=== PATIENT | male | born 1975 | race Caucasian/White ===

== ENCOUNTER 2020-04-29 08:26 | Outpatient (CLI) | payer BC, SELFPAY ==
[2020-04-29 09:11] LABS: Alanine Aminotransferase 38 U/L (16-63); Albumin Level 4.2 g/dL (3.4-5.0); Alkaline Phosphatase 61 U/L (46-116); Anion Gap 11 mmol/L (8-16); Aspartate Amino Transferase 15 U/L (15-37); Bilirubin,Total 0.3 mg/dL (0.00-1.00); Blood Urea Nitrogen 21 mg/dL (7-18); Calcium 9.3 mg/dL (8.5-10.1); Carbon Dioxide 26 mmol/L (21-32); Chloride 102 mmol/L (98-108); Estimated Glomerular Filt Rate > 60; Glucose 108 mg/dL (70-99); Lipase 443 U/L (73-393); Osmolality Calculated 292 mOsm/kg (285-295); Potassium 4.6 mmol/L (3.5-5.1); Sodium 139 mmol/L (136-145); Total Protein 7.8 g/dL (6.4-8.2)
[2020-05-01 19:46] LABS: H pylori, Urea Breath NOT DETECTED (NOT DETECTED)
== END 2020-04-29 08:27 | disposition home or self-care (01) ==
LOC: CHSLAB 08:28
PROVIDERS: PCP Family Medicine; Visit Provider Family Medicine
DX: K21.9 Gastro-esophageal reflux disease without esophagitis (principal)
CPT/HCPCS: 36415; 80053; 83013; 83690

== ENCOUNTER 2020-04-30 08:54 | Outpatient (CLI) | payer BC, SELFPAY ==
--- NOTE | ~2020-04-30 | US_ITS ---
US abdomen limited INDICATION: Acute pancreatitis PROCEDURE: Realtime right upper abdominal ultrasound. COMPARISON: CT dated 03/11/2018 FINDINGS: Pancreas is not well visualized due to overlying bowel gas. No gross abnormality of the marti creas identified. Liver echotexture is increased, consistent with fatty infiltration. There is norm al directional flow in the portal vein. The gallbladder is normal without stones, gallbladder wall thickening or pericholecystic fluid. Comm on bile duct measures 4 mm. No sonographic Valdez's sign. IMPRESSION: 1: Limited visualization of the pancreas. Consider correlation with CT. 2: Hepatic steatosis. Reviewed, dictated and finalized at location B. R TENDER
== END 2020-04-30 08:55 | disposition home or self-care (01) ==
LOC: CHSIMG 08:56
PROVIDERS: PCP Family Medicine; Visit Provider Family Medicine
DX: K85.90 Acute pancreatitis without necrosis or infection, unspecified (principal)
CPT/HCPCS: 76705

== ENCOUNTER 2020-08-20 13:30 | Outpatient (CLI) | payer BC, SELFPAY ==
[2020-08-20 13:41] LABS: Basophils Absolute Auto 0.05 K/mm3 (0.00-0.10); Basophils Percent Auto 0.3 % (0.0-1.0); Eosinophils Absolute Auto 0.06 K/mm3 (0.02-0.50); Eosinophils Percent Auto 0.3 % (1.0-6.0); Hematocrit 44.1 % (40.0-54.0); Hemoglobin 14.8 g/dL (14.0-18.0); Immature Granulocyte Absolute 0.11 K/mm3 (0.00-0.00); Immature Granulocyte Percent A 0.6 % (0.0-0.0); Lymphocytes Absolute Auto 1.04 K/mm3 (1.10-4.50); Lymphocytes Percent Auto 5.6 % (18.0-42.0); Mean Corpuscular HGB Conc 33.6 g/dL (32.0-36.0); Mean Corpuscular Hemoglobin 31.2 pg (27.0-31.0); Mean Corpuscular Volume 92.8 fL (78.0-102.0); Mean Platelet Volume 9.8 fl (8.7-11.0); Monocytes Absolute Auto 0.97 K/mm3 (0.10-0.90); Monocytes Percent Auto 5.2 % (2.0-11.0); Neutrophils Absolute Auto 16.4 K/mm3 (1.7-7.2); Platelet Count Result 259 K/mm3 (150-420); Red Blood Count 4.75 M/mm3 (4.70-6.10); Red Cell Distribution Width 13.5 % (11.6-14.4); White Blood Count 18.7 K/mm3 (4.8-10.8)
[2020-08-20] MEDS: SODIUM CHLORIDE 0.9% IV 1,000 ML 1000 ML IVPB (14:04)
[2020-08-20] MEDS: METOCLOPRAMIDE HCL INJ 10 MG/2 ML VIAL IV PUSH (14:04)
[2020-08-20 14:08] VITALS: BP 114/68; PULSE 78; RESP 18; TEMP 36.1; O2SAT 97
[2020-08-20 14:08] LABS: Alanine Aminotransferase 36 U/L (16-63); Albumin Level 4.1 g/dL (3.4-5.0); Alkaline Phosphatase 78 U/L (46-116); Amylase 46 U/L (25-115); Anion Gap 12 mmol/L (8-16); Aspartate Amino Transferase 17 U/L (15-37); Bilirubin,Total 0.5 mg/dL (0.00-1.00); Blood Urea Nitrogen 21 mg/dL (7-18); Calcium 9.4 mg/dL (8.5-10.1); Carbon Dioxide 26 mmol/L (21-32); Chloride 98 mmol/L (98-108); Estimated Glomerular Filt Rate 48; Glucose 114 mg/dL (70-99); Lipase 64 U/L (73-393); Osmolality Calculated 286 mOsm/kg (285-295); Potassium 4.5 mmol/L (3.5-5.1); Sodium 136 mmol/L (136-145)
--- NOTE | 2020-08-20 15:12 | PC.NURSE ---
Patient sent over from [facility] for 1 L NS and IV Reglan. Patient reports woke up yesterday with n/v and diarrhea. Labs drawn in lab. NS IV 1 L and IV Reglan administered -see MAY. Tolerated well. Reports feels better. Safe exit of hospital.
== END 2020-08-20 13:31 | disposition home or self-care (01) ==
PROVIDERS: PCP Family Medicine; Visit Provider Nurse Practitioner Family
DX: E86.0 Dehydration (principal); R11.2 Nausea with vomiting, unspecified
CPT/HCPCS: 36415; 80053; 82150; 83690; 85025; 96360; 96361; 96374; J2765; J7030

== ENCOUNTER 2020-08-21 12:55 | Outpatient (CLI) | payer BC, SELFPAY ==
--- NOTE | ~2020-08-21 | CT_ITS ---
EXAMINATION: CT abdomen pelvis w con DATE: 08/21/2020 13:31 INDICATION: Abdominal pain and vomiting TECHNIQUE: Computed tomography (CT) of the abdomen and pelvis was performed with 100 mL Omnipaque-350 intravenous contrast. Automated exposure control and iterative reconstruction technique were employe d. The dose-length product was 1252.23 mGy-cm. COMPARISON: 03/11/2018 FINDINGS: Lung bases are clear. Heart size is normal. No pericardial or pleural effusion. Diffuse hepatic steat osis with focal sparing along the gallbladder fossa. Gallbladder, spleen, pancreas, bilateral adrenal glands and kidneys are normal. There is diffuse wall thickening of the colon with proximal colonic p redominance where there is also mild pericolonic inflammatory stranding consistent with colitis. No p neumatosis. Small bowel and appendix are normal. Decompressed bladder is unremarkable. No free intrap eritoneal gas or fluid. No pathologically enlarged abdominal or pelvic lymphadenopathy. Minimal scatt ered degenerative skeletal changes. IMPRESSION: 1. Proximal colitis which could be infectious, inflammatory or less likely ischemic in etiology. 2. Diffuse hepatic steatosis. Reviewed, dictated and finalized at location A. IMPRESSION: 1. Proximal colitis which could be infectious, inflammatory or less likely isch emic in etiology. 2. Diffuse hepatic steatosis.
== END 2020-08-21 12:56 | disposition home or self-care (01) ==
LOC: CHSIMG 12:58
PROVIDERS: PCP Family Medicine; Visit Provider Nurse Practitioner Family
DX: R10.9 Unspecified abdominal pain (principal); K52.9 Noninfective gastroenteritis and colitis, unspecified
CPT/HCPCS: 74177; Q9967

== ENCOUNTER 2020-08-22 12:49 | Outpatient (CLI) | payer BC, SELFPAY ==
[2020-08-22] MEDS: SODIUM CHLORIDE 0.9% IV 1,000 ML 999 ML IVPB (13:32)
[2020-08-22 13:45] VITALS: BP 124/76; PULSE 80; RESP 16; O2SAT 97
--- NOTE | 2020-08-22 15:56 | PC.NURSE ---
Patient here for 1 L NS IV over 1 hour. Patient was here on Wednesday for same thing. No concerns voiced. Reports has colitis and is now on Flagyl po. 1 L NS administered. Tolerated well. Going to lab for bloodwork as ordered. Safe exit.
[2020-08-22 16:19] LABS: Alanine Aminotransferase 49 U/L (16-63); Albumin Level 3.3 g/dL (3.4-5.0); Alkaline Phosphatase 67 U/L (46-116); Anion Gap 12 mmol/L (8-16); Aspartate Amino Transferase 30 U/L (15-37); Bilirubin,Total 0.3 mg/dL (0.00-1.00); Blood Urea Nitrogen 19 mg/dL (7-18); Carbon Dioxide 24 mmol/L (21-32); Chloride 104 mmol/L (98-108); Estimated Glomerular Filt Rate > 60; Glucose 89 mg/dL (70-99); Osmolality Calculated 291 mOsm/kg (285-295); Potassium 4.6 mmol/L (3.5-5.1); Sodium 140 mmol/L (136-145); Total Protein 6.6 g/dL (6.4-8.2)
== END 2020-08-22 12:50 | disposition home or self-care (01) ==
PROVIDERS: PCP Family Medicine; Visit Provider Nurse Practitioner Family
DX: E86.0 Dehydration (principal); N28.9 Disorder of kidney and ureter, unspecified
CPT/HCPCS: 36415; 80053; 96360; J7030

== ENCOUNTER 2021-03-04 07:39 | Outpatient (RCR) | payer BC, SELFPAY ==
--- NOTE | 2021-03-04 08:22 | PTOPEVAL ---
Thank you for referring Dharmesh Davison to [facility].? The patient is scheduled to be seen for therapy? ____x/week for ___ weeks. Please review, sign, date and return this plan of care FERCHO. I agree with and certify that the following plan of care is medically necessary. Referring Physician Date Admitting Provider: Attending Provider: Vinay Han DPM Referring Provider: CHATO Outpatient Evaluation Start: 03/04/21 07:05 Freq: Status: Active Protocol: Document 03/04/21 07:05 [facility] (Rec: 03/04/21 08:18 [facility] [id number]) Therapy Assessment Status Assessment Status Assessment Status Evaluation Evaluation Information Problem Diagnosis R plantar fascial fibromatosis Onset 02/24/21 Additional Evaluation Detail LEFS = Subjective Information patient reports he has been Query Text:As Reported By Patient/ having pain in the R foot for Family about 2-3 years. he reports having pain more in the inside and bottom of the R heel. he reports he does have swelling from time to time. he reports he has had the problem several times on both feet. he reports he has had injections in the past on his bilateral feet. he reports he works at [employer]. he reports he is on his feet in work boots for long hours. he reports the pain is worst after he rests and tries to get up and walk again. Prior Level of Function Comments Additional Prior Level of Function patient reports he has been Comments having pain from more than 2-3 years. he reports he has been getting worse for the whole 2 -3 years. he reports he has had several failed injections in the R foot. Pain Assessment Timing of Pain Assessment Timing of Pain Assessment Assessment Pain Scale Pain Scale Used Numeric (1 - 10) Self Report Pain Assessment Right Foot/Feet Reported Pain Level 6 Greatest Pain Intensity 9 Pain Score Pain Score 6: Self Report Interventions Used Interventions Used By Clinicians Exercise,Ice,Medication,Rest Lower Extremity Range of Motion Ankle/Foot Range of Motion Right Ankle Dorsiflexion With Knee Extension 0 Range of Motion - Active Ankle Dorsiflexion With Knee Flexed
--- NOTE | 2021-04-03 17:15 | PTOPEVAL ---
Thank you for referring Dharmesh Davison to [facility].? The patient is scheduled to be seen for therapy? ____x/week for ___ weeks. Please review, sign, date and return this plan of care FERCHO. I agree with and certify that the following plan of care is medically necessary. Referring Physician Date Admitting Provider: Attending Provider: Vinay Han DPM Referring Provider: *PT Outpatient Evaluation Start: 03/04/21 07:05 Freq: Status: Active Protocol: Document 04/03/21 15:29 [facility] (Rec: 04/03/21 17:15 [facility] [id number]) Therapy Assessment Status Assessment Status Assessment Status Discharge Evaluation Information Problem Diagnosis R plantar fascial fibromatosis Onset 02/24/21 Additional Evaluation Detail LEFS= 62% functionally declined Subjective Information patient reports initially he Query Text:As Reported By Patient/ was doing well with therapy, Family but reports this was during a 2 week off period at work. 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 he reports his ROM is better, but the pain is what is constant again and causing him to limp. Pain Assessment Timing of Pain Assessment Timing of Pain Assessment Assessment Pain Scale Pain Scale Used Numeric (1 - 10) Self Report Pain Assessment Right Foot/Feet Reported Pain Level 8 Pain Score Pain Score 8: Self Report Interventions Used Interventions Used By Clinicians Activity or ADL's,Dry Needling ,Education,Exercise,Manual Therapy Techniques Lower Extremity Range of Motion Ankle/Foot Range of Motion Right Ankle Dorsiflexion With Knee Extension 10 Range of Motion - Active Ankle Plantarflexion Range of Motion - 40 Active Query Text: Lower Extremity Muscle Strength Testing Ankle Strength Right Ankle Dorsiflexion Strength 5 Normal Ankle Plantarflexion Strength 4+ Good + Muscle Length Testing Muscle Length Testing Gastrocnemius Length (L) WFL,(R) Mild Tightness Palpation Assessment Palpation Palpation tenderness to palpation of the medial calcaneal tubercle and the medial foot just superior to the medial calaneal tubercle.
== END 2021-04-03 08:32 | disposition home or self-care (01) ==
LOC: CHSPT 07:39
PROVIDERS: Visit Provider Podiatrist
DX: M72.2 Plantar fascial fibromatosis (principal)
CPT/HCPCS: 97110; 97140; 97161

== ENCOUNTER 2021-04-07 08:18 | Outpatient (CLI) | payer BC, SELFPAY ==
--- NOTE | ~2021-04-07 | XR_ITS ---
XR foot RT min 3V DATE: 04/07/2021 08:54 INDICATION: Plantar fasciitis TECHNIQUE: 3 weightbearing views of right foot COMPARISON: None FINDINGS: Distal Achilles tendon calcification is noted. There is mild plantar calcaneal enthesopathy . No fracture, dislocation, periosteal reaction or bone destruction is detected. IMPRESSION: Distal Achilles tendon calcification and mild plantar calcaneal enthesopathy Reviewed, dictated and finalized at location A. ECTIONAL OFFICER IMPRESSION: Distal Achilles tendon calcification and mild plantar calcaneal ent hesopathy
[2021-04-07 08:37] LABS: Basophils Absolute Auto 0.06 K/mm3 (0.00-0.10); Basophils Percent Auto 0.8 % (0.0-1.0); Eosinophils Absolute Auto 0.26 K/mm3 (0.02-0.50); Eosinophils Percent Auto 3.5 % (1.0-6.0); Hematocrit 42.7 % (40.0-54.0); Hemoglobin 14.8 g/dL (14.0-18.0); Immature Granulocyte Absolute 0.04 K/mm3 (0.00-0.00); Immature Granulocyte Percent A 0.5 % (0.0-0.0); Lymphocytes Absolute Auto 2.46 K/mm3 (1.10-4.50); Lymphocytes Percent Auto 33.5 % (18.0-42.0); Mean Corpuscular HGB Conc 34.7 g/dL (32.0-36.0); Mean Corpuscular Hemoglobin 32.3 pg (27.0-31.0); Mean Corpuscular Volume 93.2 fL (78.0-102.0); Mean Platelet Volume 9.9 fl (8.7-11.0); Monocytes Absolute Auto 0.51 K/mm3 (0.10-0.90); Monocytes Percent Auto 6.9 % (2.0-11.0); Neutrophils Percent Auto 54.8 % (50.0-70.0); Platelet Count Result 281 K/mm3 (150-420); Red Blood Count 4.58 M/mm3 (4.70-6.10); Red Cell Distribution Width 13.1 % (11.6-14.4); White Blood Count 7.4 K/mm3 (4.8-10.8)
[2021-04-07 09:21] LABS: Alanine Aminotransferase 49 U/L (16-63); Albumin Level 3.9 g/dL (3.4-5.0); Alkaline Phosphatase 58 U/L (46-116); Anion Gap 14 mmol/L (8-16); Aspartate Amino Transferase 17 U/L (15-37); Bilirubin,Total 0.4 mg/dL (0.00-1.00); Blood Urea Nitrogen 19 mg/dL (7-18); Calcium 9.1 mg/dL (8.5-10.1); Carbon Dioxide 23 mmol/L (21-32); Chloride 100 mmol/L (98-108); Cholesterol 217 mg/dL (0-200); Estimated Glomerular Filt Rate > 60; Glucose 154 mg/dL (70-99); HDL Direct 38 mg/dL (40-60); LDL Cholesterol Calculated 126 mg/dL (<130); Osmolality Calculated 289 mOsm/kg (285-295); Potassium 4.1 mmol/L (3.5-5.1); Prostate Specific Antigen 0.8 ng/mL (< OR = 4.0); Sodium 137 mmol/L (136-145); Total Protein 7.5 g/dL (6.4-8.2); Triglycerides 266 mg/dL (0-150)
[2021-04-07 13:35] LABS: Hemoglobin A1C 6.1 % (<5.7)
== END 2021-04-07 08:19 | disposition home or self-care (01) ==
LOC: CHSLAB 08:22
PROVIDERS: PCP Family Medicine; Visit Provider Nurse Practitioner Family
DX: E78.5 Hyperlipidemia, unspecified (principal); M72.2 Plantar fascial fibromatosis; I10 Essential (primary) hypertension; N28.9 Disorder of kidney and ureter, unspecified; R73.09 Other abnormal glucose; R35.1 Nocturia
CPT/HCPCS: 36415; 73630; 80053; 80061; 83036; 84153; 85025

== ENCOUNTER → 2021-04-08 09:13 | Outpatient (CLI) | payer BC, SELFPAY ==
--- NOTE | ~2021-04-08 | MR_ITS ---
EXAMINATION: MR foot RT wo con DATE: 04/08/2021 10:24 INDICATION: Right foot pain. Neoplasm of unspecified behavior of bone or soft tissue. TECHNIQUE: Magnetic resonance imaging (MRI) of the right mid and hindfoot including the ankle was per formed without intravenous contrast. Sequences included sagittal, coronal, and axial proton-density w eighted fast spin echo without and with fat saturation. COMPARISON: Radiographs dated 04/07/2021 FINDINGS: Medial ankle ligaments: Deep and superficial deltoid ligaments as well as the spring ligament are normal. Lateral ankle ligaments: The anterior and posterior inferior tibiofibular ligaments are normal. The anterior talofibular, calc aneofibular and posterior talofibular ligaments are normal. Tendons: Achilles tendon is normal. The peroneus longus and brevis tendons are normal. The tibialis anterior a nd extensor hallucis longus and extensor digitorum longus tendons are normal. The tibialis posterior, flexor digitorum longus and flexor hallucis longus tendons are normal. Plantar fascia: Mild fusiform thickening of the central component of the proximal plantar aponeurosis with mild incre ased fluid signal in the immediately surrounding soft tissues consistent with mild plantar fasciitis. Partial thickness tear involving approximately two thirds of the cross-sectional area of the central component of the proximal plantar aponeurosis located approximately 1.5 cm from the calcaneal insert ion. Bones/other: Bone alignment is normal. No fracture. Mild osteoarthritis at the right ankle joint with small amount of subarticular increased marrow signal along the medial side of the talar dome suggesting overlying high-grade chondromalacia. Remaining joint spaces are normal. Otherwise normal marrow signal. Fluid: Physiologic amount of fluid in the joint space. No bursitis, tenosynovitis or other abnormal fluid co llections. IMPRESSION: 1. Mild plantar fasciitis with partial-thickness tear of the central component of the plantar aponeur osis. 2. Mild right ankle osteoarthritis with small region of high-grade chondral malacia along the medial side of the talar dome. Reviewed, dictated and finalized at location A. TYING MACHINE KNOTTER IMPRESSION: 1. Mild plantar fasciitis with partial-thickness tear of the central component of the plantar aponeurosis. 2. Mild right ankle osteoarthritis with small region of high-grade chondral mal acia along the medial side of the talar dome.
== END ==
PROVIDERS: Visit Provider Podiatrist
DX: M19.071 Primary osteoarthritis, right ankle and foot (principal); M72.2 Plantar fascial fibromatosis
CPT/HCPCS: 73718

== ENCOUNTER → 2021-09-08 08:28 | Outpatient (CLI) | payer BC, SELFPAY ==
--- NOTE | ~2021-09-08 | MR_ITS ---
EXAMINATION: MR ankle RT wo con DATE: 09/08/2021 09:04 INDICATION: Right ankle pain TECHNIQUE: Magnetic resonance imaging (MRI) of the right ankle was performed without intravenous cont rast. Sequences included sagittal, coronal, and axial proton-density weighted fast spin echo without and with fat saturation. COMPARISON: None. FINDINGS: Medial ankle ligaments: Deep and superficial deltoid ligaments as well as the spring ligament are normal. Lateral ankle ligaments: The anterior and posterior inferior tibiofibular ligaments are normal. The anterior talofibular, calc aneofibular and posterior talofibular ligaments are normal. Tendons: Achilles tendon is normal. The peroneus longus and brevis tendons are normal. The tibialis anterior a nd extensor hallucis longus and extensor digitorum longus tendons are normal. The tibialis posterior, flexor digitorum longus and flexor hallucis longus tendons are normal. Plantar fascia: Mild thickening and mild increased signal at the central component of the plantar aponeurosis located approximately 1.5 cm from the calcaneal origin consistent with mild scarring at the site of a previo usly noted partial tear. Bones/other: Bone alignment is normal. No fracture or pathologic marrow replacing process. Again seen is a region of high-grade chondromalacia with mild subarticular edema along the posterior medial aspect of the me dial talar dome. There is a more clearly defined deep chondral fissure extending obliquely across the overlying cartilage of the talar dome which is likely present on the prior study but more conspicuou s in the current study. Marrow signal is otherwise normal. Remaining joint spaces are normal. Fluid: Physiologic amount fluid in the joint space. No bursitis, tenosynovitis or other abnormal fluid colle ctions. IMPRESSION: 1. Residual scarring at the site of a prior partial tear at the proximal aspect of the central compon ent of the plantar aponeurosis. 2. Mild ankle osteoarthritis with no significant change in a deep chondral fissure with underlying mi ld subarticular edema at the posterior medial aspect of the talar dome. Reviewed, dictated and finalized at location B. IMPRESSION: 1. Residual scarring at the site of a prior partial tear at the proximal aspect of the central component of the plantar aponeurosis. 2. Mild ankle osteoarthritis with no significant change in a deep chondral fiss ure with underlying mild subarticular edema at the posterior medial aspect of t he talar dome.
== END ==
PROVIDERS: PCP Family Medicine; Visit Provider Student in an Organized Health Care Education/Training Program
DX: M25.571 Pain in right ankle and joints of right foot (principal); M19.071 Primary osteoarthritis, right ankle and foot; R60.9 Edema, unspecified
CPT/HCPCS: 73721

== ENCOUNTER 2021-10-08 01:34 | Day surgery (SDC) | payer BC, SELFPAY ==
[2021-10-03 13:59] VITALS: BMI 39.9
--- NOTE | 2021-10-03 14:07 | SUR.PREOP ---
Report to the Outpatient Waiting Room, entrance under the green pavilion located off [facility], at time _0600_ on date 10/08/21. OR Time: 0730. - You and your visitor will be asked a series of questions to screen for COVID 19 for your protection. - Only one visitor is allowed at this time. - The patient visitor is requested to leave or wait in car when not with patient. - A mask is required within the hospital. Patients may have clear liquids (water, carbonated beverages, clear teas, apple juice) until 3 hours prior to surgery with a maximum of 20 ounces. - No food from midnight until time of surgery 0430 AM - Infants may have breast milk until 4 hours before surgery, formula 6 hours prior to surgery. - Children will be allowed to drink immediately following surgery. If applicable, please bring a bottle or sippy cup to assist with drinking. Juice, water, soda, and popsicles are readily available. For infants on formula, please bring formula the day of surgery. Pacifiers are allowed. Take the following medications with a SIP of water the morning of surgery: ___HOLD ALL MORNING MEDICATIONS Medications to discontinue per physician Date to take last dose Please no make-up, nail irish, hairspray, perfume, deodorant, or body powder the day of surgery. No jewelry (including any body piercings) or valuables the day of surgery, leave them at home. Please take a shower or bath the night before, or the morning of, surgery with an antibacterial soap. Wear comfortable, loose fitting clothing. Children are encouraged to wear pajamas. - Jewelry must be removed prior to entering the operating room. Rings and piercings that are not removed may be cut off. - The hospital will not accept responsibility for valuables. - Please leave all valuables, including medications, at home the day of surgery. If you are going home after surgery, a licensed oil transport driver must drive you home. - NO public transportation without another adult. - We recommend that an adult stay with you for 24 hours following discharge. - We also recommend that you do not drive, make important decision, drink alcoholic beverages, or take any drugs that were not prescribed by your health care provider for at least 24 hours after your discharge time. For Pediatric surgeries, we recommend two adults accompany the child home (only one inside the building at this time). Follow any additional instructions given to you from your surgeon. If you or anyone in your household have experienced Covid symptoms in the past week, please notify your surgeon or the nurse liaison at the phone number below for possible testing. Telephone instructions given to _PATIENT and asked if any additional questions and then verbalized understanding. Patient advised to call surgeon office or pre surgery nurse liaison [phone] if any additional questions.
--- NOTE | 2021-10-07 13:39 | WPDANESEPPF ---
Anes - Initial Pre Proc Eval Procedure: Operation Date: 10/08/21 07:30 Proposed Procedures p Open Plantar Fasciotomy Right Foot, - Ana Laura Han DPM s Platelet Rich Plasma Injection Right Heel - Ana Laura Han DPM Date/Time: 10/07/21 13:39 Surgeon: Ana Laura Han DPM Pre Op Diagnosis: plantar fascitis right foot Patient Data Age: 46 Gender: M Height: 1.65 m Weight: 108.88 kg Allergies Allergy/AdvReac Type Severity Reaction Status Date / Time No Known Allergies Allergy Verified 06/23/21 07:52 Home Medications Medication Instructions Recorded Confirmed Type lisinopril 40 mg tablet 40 mg PO DAILY 10/03/21 10/03/21 History pantoprazole 40 mg tablet,delayed 40 mg PO DAILY 10/03/21 10/03/21 History release pravastatin 80 mg tablet 80 mg PO DAILY 10/03/21 10/03/21 History Patient hx anesthesia problems: none Family hx anesthesia problems: none Results Review: All pre-operative results and documents have been reviewed as part of the pre-operative evaluation. [facility] Past Medical History Medical History Abdominal pain Acute pancreatitis Bronchitis GERD (gastroesophageal reflux disease) Hyperlipidemia Hypertension Idiopathic urticaria Kidney function abnormal Nausea and vomiting Nocturia Obesity, Class II, BMI 35-39.9 Rectal bleeding Surgical History Surgical History No history of previous surgery Family History Family History Father Elevated PSA Mother , Age 54 Lung cancer Liver cancer Other Family history of coronary artery disease Social History Social History Smoking status: Never smoker Living arrangements: with family Additional living arrangements comments: . 1 child. Additional occupation/education comments: [employer] Spiritual care concerns: No Anes - Eval Final PreProcedure Day of Procedure 10/07/21 13:39 Patient weight: obese Heart: regular rate and rhythm Lungs: clear to auscultation and normal air movement Airway: Mallampati scale class II Neurological: alert and oriented Last oral intake: >/= 8 hours ASA classification: III Emergent: no Anesthetic plan: proceed Anesthesia type and monitoring: general GIVS and LMA Results Review: All pre-operative results and documents have been reviewed as part of the pre-operative evaluation. Informed Consent: The patient's anesthetic plan and its attendant risks and benefits were discussed with the patient/family/POA. Questions were solicited and answers provided to the satisfaction of the patient/family/POA.
[2021-10-08] MEDS: LACTATED RINGERS 1,000 ML 30 ML IV CONT ×2 (06:30→08:29)
--- NOTE | 2021-10-08 06:47 | WPDHPUPDATE1 ---
History and Physical Update Update Date/Time: 10/08/21 06:47 History and Physical has been reviewed, including an updated exam of the patient. There are NO changes in the patient's condition. Risks, benefits, and alternatives have been discussed and questions answered. Patient agrees to proceed with procedure.
[2021-10-08 07:00] VITALS: BP 144/91; PULSE 86; RESP 18; TEMP 37.3; O2SAT 100
[2021-10-08] MEDS: ceFAZolin 2 GM/D5W 50 ML 2 GM/50 ML BAG IVPB (07:29)
[2021-10-08] MEDS: KETOROLAC 30 MG/ML VIAL (*BKC) IV PUSH (07:43)
[2021-10-08] MEDS: BUPIVACAINE HCL 0.5% PF 30 ML VIAL 10 ML INFILTRATE (08:00)
[2021-10-08 08:29] VITALS: BP 115/65; PULSE 76; RESP 16; O2SAT 97
--- NOTE | 2021-10-08 08:44 | P.OP_ITS ---
Procedure Note - Detailed Date of Procedure 10/08/21 Pre-op Diagnosis 1) Plantar fascia tear right foot with residual scar tissue. 2) Pain in right foot. Post-op Diagnosis Same Procedure Performed 1) Open plantar fasciotomy right foot. 2) Platelet rich plasma injection right foot. Surgeon Ana Laura Han DPM Anesthesia MAC and Local (Preop 10 cc of 1:1 mix of 1% lidocaine plain and 0.5% bupivacaine plain. Postop 4 cc of 0.5% bupivacaine plain. ) Indications Patient has been treated for plantar fascia tear right foot since March 2021 with immobilization, steroid injection, otc orthotics, nsaids, stretching and physical therapy. Patient has failed conservative treatment. Description of Procedure Patient was brought into the operating room and placed on the table in the supine position. The patient was secured to the table with a safety belt. A well padded pneumatic ankle tourniquet was placed on the right ankle. MAC anesthesia was achieved. The SANITATION TRUCK CLEANER adelso 40 cc of whole blood from the patients left arm which was then given to the [employer] rep who used the centrifuge to spin it down for a total of 2 cc of platelet rich plasma. A time out was performed. A local injection was performed using 10 cc of 1:1 mix of 1% lidocaine plain and 0.5% bu pivacaine plain. The right foot was exsanguinated of blood using a esmarch bandage. A linear incision was made over the medial aspect of the right heel using a #15 blade. The incision was deepened using blunt disection through the subcutaneous tissue making sure to avoid all neurovascular structures. The plantar fascia was identified and noted to be thickened. The plantar fascia was released using a combination of scissors and scalpel. The area was flushed with copious amounts of normal saline. The PRP was injected into the surgical site. The incision was closed subcutaneously using 4-0 monocryl. The skin was closed using 3-0 prolene. The tourniquet was deflated. The foot was dressed with adaptic, 4x4 gauze, 4 kerlix. A well padded posterior splint was applied using a combination of stockinette, webril, fiberglass and 6 rebecca wrap. The patient was transfered to pacu with intact perfusion of the digits. Patient tolerated procedure and anesthesia well. Patient to be discharged home with prescription for keflex and percocet. Patient to be NWB with use of crutches. Estimated Blood Loss -5.0 Tourniquet Time 23
[2021-10-08] MEDS: oxyCODONE HCL (*CRX) 5 MG TAB IR PO (08:51)
[2021-10-08 09:00] VITALS: BP 98/66; PULSE 71
[2021-10-08 09:30] VITALS: BP 116/60; PULSE 70
== END 2021-10-08 09:43 | disposition home or self-care (01) ==
PROVIDERS: PCP Family Medicine; Visit Provider Student in an Organized Health Care Education/Training Program
PROC: (CPT 28119; principal; 2021-10-08 07:30)
PROC: (CPT 28008; 2021-10-08 07:30)
DX: M72.2 Plantar fascial fibromatosis (principal); I10 Essential (primary) hypertension; E78.5 Hyperlipidemia, unspecified; K21.9 Gastro-esophageal reflux disease without esophagitis; E66.9 Obesity, unspecified; Z68.41 Body mass index [BMI] 40.0-44.9, adult
CPT/HCPCS: 28008; 0232T; A9270; J0131; J0690; J1100; J1885; J2250; J2405; J2704; J3010; J7120

== ENCOUNTER 2021-11-03 08:51 | Outpatient (RCR) | payer BC, SELFPAY ==
--- NOTE | 2021-11-03 10:08 | PTOPEVAL ---
Thank you for referring Dharmesh Davison to [facility].? The patient is scheduled to be seen for therapy? __2__x/week for 8 visits. Please review, sign, date and return this plan of care FERCHO. I agree with and certify that the following plan of care is medically necessary. Referring Physician Date Admitting Provider: Attending Provider: Ana Laura Han DPM Referring Provider: *PT Outpatient Evaluation Start: 11/03/21 08:59 Freq: Status: Active Protocol: Document 11/03/21 09:05 [facility] (Rec: 11/03/21 10:08 [facility] [id number]) Therapy Assessment Status Assessment Status Assessment Status Evaluation Outpatient Past Medical History Neurological History Hx Neurological Disorders No Significant History Cardiovascular History Hx Hypercholesterolemia Yes Hx Hypertension Yes Respiratory History Hx Respiratory Disorders No Significant History Gastrointestinal History Hx Gastrointestinal Disorders No Significant History Genitourinary History Hx Genitourinary Disorders No Significant History Musculoskeletal History Hx Musculoskeletal Disorders No Significant History Hematological History Hx Hematological Disorders No Significant History Endocrine History Hx Endocrine Disorders No Significant History HEENT History Hx HEENT Disorders No Significant History Integumentary History Hx Skin Disorders No Significant History Reproductive History Hx Reproductive Disorders No Significant History Psychosocial History Hx Psychiatric Disorders No Significant History Pain History History of Any Previous or Ongoing No Significant History Instance of Pain Anesthesia History Hx Anesthesia Reactions No Significant History Evaluation Information Problem Diagnosis open plantar fascia release Onset 10/08/21 Subjective Information Pt. reports that he underwent Query Text:As Reported By Patient/ plantar fascia surgery on 10/08 Family*. He reports that he is currently wearing a boot. He has not done full WB over the right foot yet. He reports that he is working at [employer] , but has been off work. He reports that he is on his feet all day with work. He reports that he is currently using crutches and has not returned to driving. He states that he was very activie before his injury and his goal is to return to no
--- NOTE | 2021-11-27 10:31 | PTOPEVAL1 ---
Evaluation Information Assessment Status Re-evaluation Subjective Information Dharmesh reports his right foot is improving overall with less pain, increased mobility, and progressing tolerance to weight bearing noted. He has been walking a little inside his home without his boot over the last couple days. He does continue to have mild to moderate pain. He also reports apprehension putting all his weight on his right heel. He does not feel he is quite ready to return to full duty work at the [employer] as he will have to wear steel toe boots and work 16 hour shifts on his feet. Reported Pain Level Pain Score 2: Self Report Assessment PT Clinical Summary Dharmesh is reporting improved pain and improved tolerance to weight bearing in the right foot and ankle. He objectively demonstrates improved right foot and ankle AROM, improved right foot and ankle strength, improved gait, and improved balance. Despite these improvements, he continues to have impaired gait, impaired balance, decreased strength, and decreased functional abilities. He will continue to benefit from skilled PT to further address ongoing deficits and return him to his prior level of function. Plan of Care Interventions Electrical Stimulation,Gait Training,Hot Pack/Cold Pack,Manual Therapy,Therapeutic Exercise PT Services Indicated Yes Treatment Frequency and Recommend continuation of skilled PT 2 times a Duration week for 8 more visits. These treatments will address the objective and functional deficits as defined above. The patient will be advanced safely and appropriately in order for the patient to progress towards his/her prior level of function. Additional exercises will be introduced and as well as a comprehensive home exercise program upon discharge, if needed, ?to ensure carryover of functional gains achieved in the clinic. This treatment plan has been reviewed and agreement upon by the patient.
--- NOTE | 2022-02-22 12:34 | PCPTNOTE ---
patient has not been to therapy in over 2 months. he is now DC'd from skilled PT services, and all progress towards goals will be taken from his mos recent evaluation/note. MELVA
== END 2021-12-19 18:00 | disposition home or self-care (01) ==
LOC: CHSPT 08:51
PROVIDERS: Visit Provider Student in an Organized Health Care Education/Training Program
DX: M72.2 Plantar fascial fibromatosis (principal)
CPT/HCPCS: 97014; 97110; 97140; 97161; G0283

== ENCOUNTER 2021-12-05 10:58 | Outpatient (CLI) | payer BC, SELFPAY ==
[2021-12-05 11:22] LABS: Hemoglobin A1C 6.1 % (<5.7)
[2021-12-05 11:44] LABS: Alanine Aminotransferase 63 U/L (16-63); Albumin Level 4.1 g/dL (3.4-5.0); Alkaline Phosphatase 69 U/L (46-116); Anion Gap 13 mmol/L (8-16); Aspartate Amino Transferase 28 U/L (15-37); Bilirubin,Total 0.3 mg/dL (0.00-1.00); Blood Urea Nitrogen 16 mg/dL (7-18); Calcium 9.1 mg/dL (8.5-10.1); Carbon Dioxide 21 mmol/L (21-32); Chloride 103 mmol/L (98-108); Estimated Glomerular Filt Rate 60; Glucose 153 mg/dL (70-99); Osmolality Calculated 288 mOsm/kg (285-295); Potassium 4.3 mmol/L (3.5-5.1); Sodium 137 mmol/L (136-145); Total Protein 7.5 g/dL (6.4-8.2)
== END 2021-12-05 10:59 | disposition home or self-care (01) ==
LOC: CHSLAB 11:00
PROVIDERS: PCP Family Medicine; Visit Provider Family Medicine
DX: E11.9 Type 2 diabetes mellitus without complications (principal)
CPT/HCPCS: 36415; 80053; 83036

== ENCOUNTER 2022-02-09 08:28 | Outpatient (CLI) | payer BC, SELFPAY ==
--- NOTE | ~2022-02-09 | XR_ITS ---
EXAMINATION: XR ankle RT min 3V, XR foot RT min 3V DATE: 02/09/2022 08:56 INDICATION: Right foot and ankle pain. Plantar fasciitis. TECHNIQUE: 1. Anteroposterior, mortise, additional oblique and lateral view of the right ankle were obtained. 2. Dorsoplantar, two oblique and lateral views of the right foot were obtained. COMPARISON: None. FINDINGS: Alignment of the foot and ankle is normal. No fracture or osteochondral lesion. Minimal to mild polya rticular osteoarthritis at the first metatarsophalangeal and a few tarsometatarsal and interphalangea l joints. Small plantar calcaneal spur. Small amount of enthesopathic ossification at the distal Achi lles tendon. No erosions. No ankle joint effusion. The soft tissues are unremarkable. IMPRESSION: 1. Small plantar calcaneal spur and small enthesopathic ossicles at the distal Achilles tendon. 2. Typical pattern of minimal to mild polyarticular osteoarthritis in the mid and forefoot. Reviewed, dictated and finalized at location A. [employer] IMPRESSION: 1. Small plantar calcaneal spur and small enthesopathic ossicles at the distal Achilles tendon. 2. Typical pattern of minimal to mild polyarticular osteoarthritis in the mid a nd forefoot.
== END 2022-02-09 08:29 | disposition home or self-care (01) ==
LOC: CHSIMG 08:30
PROVIDERS: PCP Family Medicine; Visit Provider Orthopaedic Surgery
DX: M25.571 Pain in right ankle and joints of right foot (principal); M79.671 Pain in right foot
CPT/HCPCS: 73610; 73630

== ENCOUNTER 2022-06-30 13:33 | Outpatient (CLI) | payer BC, SELFPAY ==
[2022-06-30 13:45] LABS: Hematocrit 44.2 % (40.0-54.0); Hemoglobin 14.9 g/dL (14.0-18.0); Mean Corpuscular HGB Conc 33.7 g/dL (32.0-36.0); Mean Corpuscular Hemoglobin 31.2 pg (27.0-31.0); Mean Corpuscular Volume 92.7 fL (78.0-102.0); Mean Platelet Volume 9.7 fl (8.7-11.0); Platelet Count Result 293 K/mm3 (150-420); Red Blood Count 4.77 M/mm3 (4.70-6.10); Red Cell Distribution Width 12.7 % (11.6-14.4); White Blood Count 8.8 K/mm3 (4.8-10.8)
[2022-06-30 14:20] LABS: Alanine Aminotransferase 35 U/L (16-63); Alkaline Phosphatase 65 U/L (46-116); Anion Gap 12 mmol/L (8-16); Aspartate Amino Transferase 17 U/L (15-37); Bilirubin,Total 0.4 mg/dL (0.00-1.00); Blood Urea Nitrogen 13 mg/dL (7-18); Calcium 9.6 mg/dL (8.5-10.1); Carbon Dioxide 25 mmol/L (21-32); Chloride 104 mmol/L (98-108); Estimated Glomerular Filt Rate > 60; Glucose 94 mg/dL (70-99); Osmolality Calculated 292 mOsm/kg (285-295); Potassium 4.4 mmol/L (3.5-5.1); Sodium 141 mmol/L (136-145); Total Protein 7.8 g/dL (6.4-8.2)
[2022-06-30 14:37] LABS: CRP < 0.5 mg/dL (0.0-0.9); Lipase 331 U/L (16-77)
== END 2022-06-30 13:34 | disposition home or self-care (01) ==
LOC: CHSLAB 13:35
PROVIDERS: PCP Family Medicine; Visit Provider Family Medicine
DX: R10.9 Unspecified abdominal pain (principal)
CPT/HCPCS: 36415; 80053; 83690; 85027; 86140

== ENCOUNTER 2022-07-03 08:14 | Outpatient (CLI) | payer BC, SELFPAY ==
--- NOTE | ~2022-07-03 | CT_ITS ---
CT of the Abdomen and Pelvis: Indication: Left-sided abdominal pain Technique: 2.5 mm axial scans were obtained through the abdomen and pelvis following intravenous adm inistration of 100 cc of Omnipaque 350. Dose reduction technique was used on this scan by utilizing a utomated exposure control and iterative reconstruction technique. The dose-length product (DLP) was 1 040.56 mGy-cm. COMPARISON: 08/21/2020 Findings: Scans through the lung bases are unremarkable. The liver, spleen, pancreas, gallbladder, adrenals and kidneys are within normal limits. No evidence of aortic aneurysm. No lymphadenopathy. No bowel obstruction or bowel wall thickening. There is no evidence to suggest acute appendicitis. Images through the pelvis were performed. Urinary bladder unremarkable. Prostate gland and seminal ve sicles are unremarkable. No ascites. Impression: No significant abnormalities seen. Reviewed, dictated and finalized at [facility]. Impression: No significant abnormalities seen.
== END 2022-07-03 08:15 | disposition home or self-care (01) ==
LOC: CHSIMG 08:15
PROVIDERS: PCP Family Medicine; Visit Provider Family Medicine
DX: R10.9 Unspecified abdominal pain (principal)
CPT/HCPCS: 74177; Q9967

== ENCOUNTER 2022-07-09 01:36 | Day surgery (SDC) | payer BC, SELFPAY ==
[2022-07-03 11:52] VITALS: BMI 38.0
[2022-07-09 07:24] VITALS: BP 127/80; PULSE 92; RESP 20; TEMP 36.6; O2SAT 100; BMI 38.0
[2022-07-09] MEDS: LACTATED RINGERS 1,000 ML 150 ML IV CONT (07:34)
[2022-07-09 08:01] LABS: Glucose Point of Care 109 mg/dl (65-105)
--- NOTE | 2022-07-09 08:02 | WPDANESEPPF ---
Anes - Initial Pre Proc Eval Procedure: Operation Date: 07/09/22 08:30 Proposed Procedures p Esophagogastroduodenoscopy & Colonoscopy - Josué Malik DO Date/Time: 07/09/22 08:02 Surgeon: Josué Malik DO Pre Op Diagnosis: abdominal pain Patient Data Age: 47 Gender: M Height: 1.65 m Weight: 103.8 kg Last Vital Signs Temp 97.8 F 07/09/22 07:24 Pulse 92 07/09/22 07:24 Resp 20 07/09/22 07:24 BP 127/80 07/09/22 07:24 Pulse Ox 100 07/09/22 07:24 O2 Del Method Room Air 07/09/22 07:24 Allergies Allergy/AdvReac Type Severity Reaction Status Date / Time No Known Allergies Allergy Verified 07/09/22 07:23 Home Medications Medication Instructions Recorded Confirmed Type semaglutide 1 mg/dose (4 mg/3 mL) 1 mg (0.75 mL) subcut WEEKLY #9 mL 05/08/22 07/03/22 Rx subcutaneous pen injector (Ozempic) lisinopril 40 mg tablet 40 mg PO DAILY 07/03/22 07/03/22 History meloxicam 7.5 mg tablet 7.5 mg PO BID PRN Pain 07/03/22 07/03/22 History pantoprazole 40 mg tablet,delayed 40 mg PO DAILY 07/03/22 07/03/22 History release pravastatin 80 mg tablet 80 mg PO DAILY 07/03/22 07/03/22 History Laboratory Tests 07/09/22 07:39 POC Capillary Glucose 109 mg/dl H mg/dl (65-105) Patient hx anesthesia problems: none Family hx anesthesia problems: none Results Review: All pre-operative results and documents have been reviewed as part of the pre-operative evaluation. [facility] Past Medical History Medical History Abdominal pain Acute pancreatitis Arthritis of ankle, right, degenerative Bronchitis Chondromalacia of right ankle GERD (gastroesophageal reflux disease) Hyperlipidemia Hypertension Idiopathic urticaria Kidney function abnormal Nausea and vomiting Nocturia Obesity, Class II, BMI 35-39.9 Rectal bleeding Surgical History Surgical History No history of previous surgery Family History Family History Father Elevated PSA Mother , Age 54 Lung cancer Liver cancer Other Family history of coronary artery disease Social History Social History Smoking status: Never smoker Alcohol intake: current Alcohol use details: 10 drinks monthly Substance use type: does not use Living arrangements: with family Additional living arrangements comments: . 1 child. Occupation/Education: occupation Additional occupation/education comments: [employer] care concerns: No Anes - Eval Final PreProcedure Day of Procedure 07/09/22 08:02 Patient weight: obese Heart: regular rate and rhythm Lungs: clear to auscultation Airway: Mallampati scale class III Neurological: alert and oriented Last oral intake: >/= 8 hours ASA classification: III Emergent: no Anesthetic plan: proceed Anesthesia type and monitoring: general GIVS and standard monitoring Results Review: All pre-operative results and documents have been reviewed as part of the pre-operative evaluation. Informed Consent: The patient's anesthetic plan and its attendant risks and benefits were discussed with the patient/family/POA. Questions were solicited and answers provided to the satisfaction of the patient/family/POA.
--- NOTE | 2022-07-09 08:03 | PM.IMHP ---
H&P: HPI History of Present Illness Date/Time: 07/09/22 08:03 Chief Complaint: Left upper quadrant pain Narrative: This is a 47-year-old man who presents for EGD and colonoscopy. He has been experiencing left upper quadrant pain and source has been on identified. He does have some acid reflux and heartburn but denies any nausea or vomiting. He denies any change bowel habits or hematochezia or melena. He denies family history of colon cancer. His never had a colonoscopy Review of Systems Review of Systems: All systems reviewed & are unremarkable except as noted in HPI and below Constitutional: Constitutional: Denies chills, Denies fever(s), Denies headache(s) and Denies weight loss Eyes: Eyes: Denies change in vision ENT: Denies dizziness, Denies headache(s), Denies neck mass and Denies throat swelling Cardiovascular: Cardiovascular: Denies chest pain, Denies lightheadedness and Denies dyspnea Respiratory: Respiratory: Denies cough, Denies dyspnea and Denies wheezing Gastrointestinal: Gastrointestinal: Reports abdominal pain (LUQ), Denies change in bowel habits, Denies nausea and Denies vomiting Genitourinary: Genitourinary: Denies hematuria and Denies dysuria Musculoskeletal: Musculoskeletal: Reports as per HPI Integumentary/Breasts: Skin/Breast: Reports as per HPI Neurologic: Denies dizziness and Denies headache(s) Allergic/Immunologic: Allergic/Immunologic: Denies throat swelling and Denies wheezing [facility] Past Medical History Medical History Abdominal pain Acute pancreatitis Arthritis of ankle, right, degenerative Bronchitis Chondromalacia of right ankle GERD (gastroesophageal reflux disease) Hyperlipidemia Hypertension Idiopathic urticaria Kidney function abnormal Nausea and vomiting Nocturia Obesity, Class II, BMI 35-39.9 Rectal bleeding Surgical History Surgical History No history of previous surgery Family History Family History Father Elevated PSA Mother , Age 54 Lung cancer Liver cancer Other Family history of coronary artery disease Social History Social History Smoking status: Never smoker Alcohol intake: current Alcohol use details: 10 drinks monthly Substance use type: does not use Living arrangements: with family Additional living arrangements comments: . 1 child. Occupation/Education: occupation Additional occupation/education comments: [employer] care concerns: No Meds Home Medications and Allergies Home Medications Medication Instructions Recorded Confirmed Type semaglutide 1 mg/dose (4 mg/3 mL) 1 mg (0.75 mL) subcut WEEKLY #9 mL 05/08/22 07/03/22 Rx subcutaneous pen injector (Ozempic) lisinopril 40 mg tablet 40 mg PO DAILY 07/03/22 07/03/22 History meloxicam 7.5 mg tablet 7.5 mg PO BID PRN Pain 07/03/22 07/03/22 History pantoprazole 40 mg tablet,delayed 40 mg PO DAILY 07/03/22 07/03/22 History release pravastatin 80 mg tablet 80 mg PO DAILY 07/03/22 07/03/22 History Allergies Allergy/AdvReac Type Severity Reaction Status Date / Time No Known Allergies Allergy Verified 07/09/22 07:23 Vital Signs Vital Signs - 24 hr 07/09/22 07:24 Temperature 36.6 C Pulse Rate 92 Respiratory Rate 20 Blood Pressure 127/80 Pulse Oximetry 100 Oxygen Delivery Room Air Exam Const: General: no acute distress and alert Orientation/consciousness: patient oriented x3 HENMT: Head: normocephalic and atraumatic Ears: hearing grossly normal bilaterally Face/Nose/Sinus: Normal nares present Mouth: Yes Normal oral and palatal mucosa present Eyes: Periorbital: periorbital findings normal Sclera: sclerae normal EOM: EOMs intact bilaterally Neck: Neck: normal visual inspection, no lymphadenopathy and
--- NOTE | 2022-07-09 08:14 | SUR.OPER ---
Endoscopy ended at 0812. Colonoscopy started at 0820.
[2022-07-09 08:35] VITALS: BP 101/66; PULSE 82; RESP 15; O2SAT 98
[2022-07-09 08:45] VITALS: BP 107/74; PULSE 83; RESP 16; O2SAT 99
[2022-07-09 08:55] VITALS: BP 117/76; PULSE 79; RESP 16; O2SAT 99
== END 2022-07-09 09:07 | disposition home or self-care (01) ==
PROVIDERS: PCP Family Medicine; Visit Provider Surgery
PROC: 0DJ08ZZ Inspection of Upper Intestinal Tract, Via Natural or Artificial Opening Endoscopic (ICD-10-PCS; CPT 43235; principal; 2022-07-09 08:30)
DX: Z12.11 Encounter for screening for malignant neoplasm of colon (principal); R10.12 Left upper quadrant pain; I10 Essential (primary) hypertension; E78.5 Hyperlipidemia, unspecified; K21.9 Gastro-esophageal reflux disease without esophagitis; E66.9 Obesity, unspecified; Z68.38 Body mass index [BMI] 38.0-38.9, adult; Z79.899 Other long term (current) drug therapy
CPT/HCPCS: 45378; 43235; 82948; J2704; J7120

== ENCOUNTER 2023-04-05 14:37 | Outpatient (RCR) | payer BC, SELFPAY ==
--- NOTE | 2023-04-05 16:03 | OPREHPOC ---
Outpatient Therapy Plan of Care This is a Multidisciplinary Plan of Care that may contain components documented by all disciplines (PT, OT, and ST.) PT Problem 1 PT Problem #1 Knowledge Deficit PT Goal 1 Goal Patient to demonstrate independence with HEP Target Visit 5 PT Problem 2 PT Problem #2 Pain PT Goal 1 Goal 1. Patient to report highest pain at 2/10 2. Patient to report ability to sleep with no disturbance due to R sided back pain Target Visit 10 PT Problem 3 PT Problem #3 Impaired Range of Motion PT Goal 1 Goal Patient to demonstrate full lumbar ROM with no report of pain to complete house hold and work tasks at PLOF Target Visit 10 PT Problem 4 PT Problem #4 Impaired Strength PT Goal 1 Goal Patient to demonstrate 5/5 B LE pain and 4+/5 core strength to return to heavy house hold tasks and lifting activities at PLOF Target Visit 10 PT Problem 5 PT Problem #5 Impaired Functional Mobil PT Goal 1 Goal 1. Patient to report ability to get up from chair with no increase in pain 2. Patient to demonstrate 20% improvement on LEFS Target Visit 10
--- NOTE | 2023-04-05 16:04 | PTOPEVAL1 ---
Assessment and note entered by Dana Wilson DPT Evaluation Information Assessment Status Evaluation Diagnosis low back pain Onset 04/02/23 Subjective Information Patient reports that he has R sided low back pain that comes and goes. He reports pain started about 6 months ago. He reports every week he is usually in pain for 2-4 days at time. He reports pain sometimes it feels like it is at the ribs as well. Patient reports pain is worse with twisting, sneezing, getting up out of a chair, turning quickly, and standing for prolonged periods. He reports that pain is worse in the mornings before getting out of bed. He reports he has had an abdominal CT done with no findings. He works at [employer] and is pushing/pulling, reaching over head and lifting. He does not have a follow up scheduled with MD. Reported Pain Level Pain Score 4: Self Report Assessment PT Clinical Summary Mr. Davison presents to PT with R sided low back pain. Patient demonstrates decreased lumbar and thoracic ROM, impaired posture and decreased core strength limiting his ability to complete house hold and work tasks, sleep and get up from a chair . He would benefit from skilled PT to address impairments and return to PLOF. Plan of Care Interventions Electrical Stimulation,Gait Training,Hot Pack/Cold Pack,Manual Therapy,Mechanical Traction,Neuro Re- education,Patient/Caregiver Educati,Therapeutic Activities,Therapeutic Exercise PT Services Indicated Yes Treatment Frequency and 2x weekly for 10 visits Duration These treatments will address the objective and functional deficits as defined above. The patient will be advanced safely and appropriately in order for the patient to progress towards his/her prior level of function. Additional exercises will be introduced and as well as a comprehensive home exercise program upon discharge, if needed, ?to ensure carryover of functional gains achieved in the clinic. This treatment plan has been reviewed and agreement upon by the patient.
--- NOTE | 2023-04-15 10:23 | PCPTNOTE ---
patient called and cancelled therapy today for an unkown reason. he is scheduled to return to therapy next week.
--- NOTE | 2023-04-27 13:02 | PCPTNOTE ---
patient had to cancel today's appointment. school is cancelled and his kids did not have child watch attendant.
== END 2023-04-29 20:00 | disposition home or self-care (01) ==
LOC: CHSPT 14:37
PROVIDERS: PCP Family Medicine; Visit Provider Family Medicine
DX: M54.9 Dorsalgia, unspecified (principal)
CPT/HCPCS: 97014; 97110; 97140; 97161; G0283

== ENCOUNTER 2023-10-01 10:40 | Outpatient (CLI) | payer BC, SELFPAY ==
--- NOTE | ~2023-10-01 | CT_ITS ---
CT of the Abdomen and Pelvis: Indication: Abdominal pain Technique: 2.5 mm axial scans were obtained through the abdomen and pelvis following intravenous adm inistration of 100 cc of Omnipaque 350. Dose reduction technique was used on this scan by utilizing a utomated exposure control and iterative reconstruction technique. The dose-length product (DLP) was 1 277.65 mGy-cm. COMPARISON: 07/03/2022 Findings: Scans through the lung bases are unremarkable. Probable mild diffuse hepatic steatosis. The spleen, pancreas, gallbladder, adrenals and kidneys are within normal limits. No evidence of aortic aneurysm. No lymphadenopathy. No bowel obstruction or bowel wall thickening. There is no evidence to suggest acute appendicitis. Images through the pelvis were performed. Urinary bladder unremarkable. Prostate gland is unremarkabl e. No ascites. Impression: No acute abnormality. Probable mild diffuse hepatic steatosis. Reviewed, dictated and finalized at [facility]. Impression: No acute abnormality. Probable mild diffuse hepatic steatosis.
--- NOTE | 2023-10-01 10:53 | ECG_ITS ---
Test Date: 2023-10-01 11:01:08 Measurements Intervals [place] Rate: 78 P: 31 [place]: 128 QRS: 42 QRSD: 101 T: 34 QT: 351 QTc: 402 Interpretive Statements SINUS RHYTHM BASELINE ARTIFACT- I, II, III, AVL, AVF NORMAL ECG No previous ECG available for comparison Electronically Signed On 10-01-2023 12:39:10 CDT by Saji Xiong D.O.
[2023-10-01 10:54] LABS: Basophils Absolute Auto 0.06 K/mm3 (0.00-0.10); Basophils Percent Auto 0.6 % (0.0-1.0); Eosinophils Absolute Auto 0.34 K/mm3 (0.02-0.50); Eosinophils Percent Auto 3.6 % (1.0-6.0); Hematocrit 41.2 % (40.0-54.0); Hemoglobin 14.6 g/dL (14.0-18.0); Immature Granulocyte Absolute 0.05 K/mm3 (0.00-0.00); Immature Granulocyte Percent A 0.5 % (0.0-0.0); Lymphocytes Absolute Auto 2.97 K/mm3 (1.10-4.50); Lymphocytes Percent Auto 31.5 % (18.0-42.0); Mean Corpuscular HGB Conc 35.4 g/dL (32-36); Mean Corpuscular Hemoglobin 32.7 pg (27.0-31.0); Mean Corpuscular Volume 92.2 fL (78.0-102.0); Mean Platelet Volume 9.7 fl (8.7-11.0); Monocytes Absolute Auto 0.74 K/mm3 (0.10-0.90); Monocytes Percent Auto 7.8 % (2.0-11.0); Neutrophils Absolute Auto 5.28 K/mm3 (1.70-7.20); Platelet Count Result 270 K/mm3 (150-420); Red Blood Count 4.47 M/mm3 (4.70-6.10); Red Cell Distribution Width 12.8 % (11.6-14.4); White Blood Count 9.4 K/mm3 (4.8-10.8)
[2023-10-01 11:13] LABS: Alanine Aminotransferase 48 U/L (16-63); Alkaline Phosphatase 62 U/L (46-116); Anion Gap 11 mmol/L (4-12); Aspartate Amino Transferase 23 U/L (15-37); Bilirubin,Total 0.4 mg/dL (0.00-1.00); Blood Urea Nitrogen 14 mg/dL (7-18); CRP < 0.5 mg/dL (0.0-0.9); Carbon Dioxide 25 mmol/L (21-32); Chloride 101 mmol/L (98-108); Estimated Glomerular Filt Rate > 60; Glucose 101 mg/dL (70-99); Lipase 63 U/L (16-77); Osmolality Calculated 284 mOsm/kg (285-295); Potassium 3.8 mmol/L (3.5-5.1); Sodium 137 mmol/L (136-145); Troponin I < 4.0 ng/L (0.00-60.4)
== END 2023-10-01 10:41 | disposition home or self-care (01) ==
LOC: CHSLAB 10:42
PROVIDERS: PCP Family Medicine; Visit Provider Family Medicine
DX: R10.9 Unspecified abdominal pain (principal)
CPT/HCPCS: 36415; 74177; 80053; 83690; 84484; 85025; 86140; 93005; Q9967

== ENCOUNTER 2024-06-27 12:08 | Outpatient (CLI) | payer BC, SELFPAY ==
--- NOTE | ~2024-06-27 | US_ITS ---
EXAMINATION: US carotid duplex BI DATE: 06/27/2024 12:35 INDICATION: Shooting pain at the left neck with headache. TECHNIQUE: Grayscale, color Doppler, and pulsed Doppler images of the cervical carotid arteries were obtained. The degree of vessel stenosis is placed in one of the following categories: normal, <50%, 5 0-69%, >=70% but less than near-occlusion, near-occlusion, or total occlusion. Note that percent sten osis relative to normal distal artery lumen diameter is indirectly measured from velocity measurement s as described by Gabino, et al. Radiology 2003; 229:340-346. COMPARISON: None. FINDINGS: RIGHT: The right common carotid artery (CCA) peak systolic velocity (PSV) is 109 cm/s. The right internal ca rotid artery (ICA) PSV is 92 cm/s. The right ICA end-diastolic velocity (EDV) is 33 cm/s. The right I CA/CCA PSV ratio is 0.8. Grayscale and color Doppler images yield an estimate of <50% diameter reduct ion from plaque in the ICA. The external carotid artery (ECA) PSV is 116 cm/s. There is antegrade greyson w in the right vertebral artery. LEFT: The left CCA PSV is 86 cm/s. The left ICA PSV is 80 cm/s. The left ICA EDV is 29 cm/s. The left ICA/C CA PSV ratio is 0.9. Grayscale and color Doppler images yield an estimate of <50% diameter reduction from plaque in the ICA. The ECA PSV is 126 cm/s. There is antegrade flow in the left vertebral artery . IMPRESSION: 1. <50% stenosis in the right internal carotid artery. 2. <50% stenosis in the left internal carotid artery. Reviewed, dictated and finalized at location A.
--- OUTSIDE RECORDS SUMMARY | 2024-06-27 13:25 | XMS_ITS | Referral Summary ---
Author Organization [address] Address [address] [facility] [place] [address] Care Team Providers Care Livestock Exhibitor Name Role Phone No, Physician Primary Care Provider Allergies No known active allergies Medications lisinopriL (PRINIVIL,ZESTRIL) 40 mg tablet 04/25/2019 Active pravastatin (PRAVACHOL) 80 mg tablet 04/25/2019 Active omeprazole (PriLOSEC) 40 mg capsule 05/05/2019 Active Active Problems No known active problems Social History Tobacco Use Types Packs/Day Years Used Date Smoking Tobacco: Never Smokeless Tobacco: Never Personal Safety Answer Date Recorded Getting School Help Needed Not on file 06/05 Sex and Gender Information Value Date Recorded Sex Assigned at Not on file Legal Sex Male 8:12 AM CDT Gender Identity Not on file Sexual Orientation Not on file Last Filed Vital Signs Vital Sign Reading Time Taken Comments Blood Pressure 128/68 06/27/2019 8:24 AM CDT Pulse 106 06/27/2019 8:24 AM CDT Temperature 37.1 C (98.8 F) 06/27/2019 8:24 AM CDT Respiratory Rate 16 06/27/2019 8:24 AM CDT Oxygen Saturation 98% 06/27/2019 8:24 AM CDT Inhaled Oxygen Concentration - - Weight 114.2 kg (251 lb 12.8 oz) 06/27/2019 8:24 AM CDT Height 165.1 cm (5' 5 ) 06/27/2019 8:24 AM CDT Body Mass Index 41.9 06/27/2019 8:24 AM CDT Plan of Treatment Not on file Insurance [employer] Care Teams Livestock Exhibitor Relationship Specialty Start Date End Date No, Physician PCP - General 06/27/19
--- OUTSIDE RECORDS SUMMARY | 2024-06-27 13:25 | XMS_ITS | Clinical Summary ---
Author Organization [facility] Address [address] [place] [id number] Care Team Providers Care Manager Intensive Care Unit Name Role Phone José Abreu DO Primary Care Provider Active Problems Problem Noted Date Diagnosed Date Nontraumatic tear of plantar fascia 08/08/2021 Social History Tobacco Use Types Packs/Day Years Used Date Smoking Tobacco: Never Assessed Sex and Gender Information Value Date Recorded Sex Assigned at Not on file Legal Sex Male 3:37 PM CDT Gender Identity Not on file Sexual Orientation Not on file Plan of Treatment Health Maintenance Due Date Last Done Comments Colorectal Cancer Screening Colonoscopy (10 Years) 1976 Annual Physical 05/25/1979 Hepatitis C 1994 DTaP, Tdap and Td Vaccines ( 1 - Tdap) 05/25/1995 Hepatitis B Vaccines (1 of 3 - 19+ 3-dose series) 05/25/1995 COVID-19 Vaccine (2023-2 5 season) 2023 02/28/2021, 05/28/2020, 04/30/2020 Meningococcal B Vaccine Aged Out No l onger eligible based on patient's age to complete this topic Meningococcal Vaccine Aged Out No dinah gil eligible based on patient's age to complete this topic Pneumococcal Vaccine: Pediatrics (0 to 5 Years) and At-Risk Patients (6 to 64 Years) Aged Out No longer eligible b ased on patient's age to complete this topic RSV Immunizations Under 20 Months Aged Out No longer eligible b ased on patient's age to complete this topic Insurance [facility] Care Teams Manager Intensive Care Unit Relationship Specialty Start Date End Date José Abreu DO [address] [place] [address] PCP - General FAMILY PRACTICE 08/01/21
--- OUTSIDE RECORDS SUMMARY | 2024-06-27 13:25 | XMS_ITS | Clinical Summary ---
Author Organization [address] Address [address] [place] [address] Care Team Providers Care Social Studies Department Chair Name Role Phone No, Physician Primary Care Provider [phone] Allergies No known active allergies Medications lisinopriL [...] on file Sexual Orientation Not on file Obstetrics History Last Filed Vital Signs Vital Sign Reading [...] Plan of Treatment Not on file Insurance [employer] Care Teams Social Studies Department Chair Relationship Specialty Start Date End Date No, Physician PCP - General 06/27/19
== END 2024-06-27 12:09 | disposition home or self-care (01) ==
LOC: CHSIMG 12:12
PROVIDERS: PCP Family Medicine; Visit Provider Family Medicine
DX: I65.23 Occlusion and stenosis of bilateral carotid arteries (principal)
CPT/HCPCS: 93880